=== PATIENT | male | born 1940 | race Caucasian/White ===

== ENCOUNTER → 2016-09-01 | Outpatient (CLI) | payer MEDICARE, BC ==
--- NOTE | 2016-09-01 09:40 | PCVCIMAG ---
EXAM: BILATERAL CAROTID DUPLEX INDICATION: Carotid Occlusive Disease. FINDINGS: Doppler Measurements (centimeters per second): RIGHT: Peak CCA-95, Peak ECA-187, Diastolic ICA-32, Peak ICA-246, ICA/CCA Ratio-2.6. LEFT: Peak CCA-128, Peak ECA-217, Diastolic ICA-46, Peak ICA-248, ICA/CCA Ratio-1.9. RIGHT CAROTID: The carotid bulb has moderate plaque. The proximal internal carotid artery shows 60-70% stenosis. The common carotid artery shows no significant stenosis. The external carotid artery shows 50-60% stenosis. LEFT CAROTID: The carotid bulb has moderate plaque. The proximal internal carotid artery shows 60-70% stenosis. The common carotid artery shows less than 50% stenosis. The external carotid artery shows 60-70% stenosis. Antegrade flow in both vertebral arteries. IMPRESSION: 60-70% stenosis of the right internal carotid artery with moderate plaque. 60-70% stenosis of the left internal carotid artery with moderate plaque. Since February 2015 study there has been mild progression of the right and left carotid stenoses. LOC:[id number]
--- NOTE | 2016-09-01 09:45 | PCVCIMAG ---
EXAM: AORTOILIAC DUPLEX INDICATION: Peripheral arterial disease FINDINGS: AORTA: Suprarenal aorta measures maximum diameter of 2.9 cm. Prior stent graft repair of abdominal aortic aneurysm appears intact without obvious endoleak. Residual aneurysm sac measures maximum diameter of 2.7 x 3.3 cm compared to 3.3 cm on prior study from February 2015. No significant aortic stenosis. RIGHT COMMON ILIAC ARTERY: Maximum diameter is 1.2 cm. No significant stenosis. RIGHT EXTERNAL ILIAC ARTERY: Mild stenosis distally. LEFT COMMON ILIAC ARTERY: Maximum diameter is 1.2 cm. No significant stenosis. LEFT EXTERNAL ILIAC ARTERY: 50-60% stenosis mid vessel. IMPRESSION: Intact stent graft repair of abdominal aortic aneurysm by ultrasound criteria. Residual aneurysm sac is stable compared to prior study. 50-60% stenosis mid left external iliac artery unchanged. LOC:[id number]
--- NOTE | 2016-09-01 13:26 | PCVCIMAG ---
APPROVED REPORT Study performed: 09/01/2016 09:02:33 EXAM: Comprehensive 2D, Doppler, and color-flow Echocardiogram Patient Location: Echo lab Status: routine Other Information Study Quality: Adequate Indications Atrial Fibrillation CAD Syncope Aortic Stenosis, increased pulmonary artery pressure 2D Dimensions LVEF(%): 48.54 (>50%) IVSd: 12.14 (7-11mm)LVOT Diam: 22.21 (18-24mm) LVDd: 46.85 mm PWd: 11.44 (7-11mm) LVDs: 35.40 (25-40mm) Left Atrium: 47.06 (27-40mm) Aortic Root: 31.96 mm LV Single Plane 4CH: 58.27 % LV Single Plane 2CH: 53.67 %Mesa's LVEF: 55.97 % Biplane EF: 56.5 % Volumes Left Atrial Volume (Systole) Single Plane 4CH: 100.68 mLSingle Plane 2CH: 108.89 mL LA ESV Index: 53.00 mL/m2 Aortic Valve AoV Peak Joey.: 3.38 m/s AO Peak Gr.: 45.68 mmHgLVOT Max P.42 mmHg AO Mean Gr.: 25.11 mmHgLVOT Mean P.29 mmHg AO V2 Mean: 2.38 m/sLVOT Max V: 1.05 m/s AO V2 VTI: 88.93 cmLVOT Mean V: 0.72 m/s GALE (VTI): 1.18 [id number] V1 VTI: 27.18 cm GALE Vmax: 1.21 cm2 AI Vmax: 3.59 m/sSV (LVOT): 105.27 mL AI Cherry: 2.21 m/s2 AI PHT: 471.21 ms Mitral Valve MV Peak Gr.: 13.16 mmHg MV Mean Gr.: 3.66 mmHgE/A Ratio: 2.2 MV Decel. Time: 157.83 ms MV E Max Joey.: 1.68 m/s MV A Joey.: 0.77 m/s MV Max Joey.: 1.81 m/s MV Mean Joey.: 0.84 m/s MV VTI: 411.73 mm MVA VTI: 255.68 mm2 MV PHT: 68.51 ms MVA (PHT): 3.21 cm2 IVRT: 58.82 ms Pulmonary Valve PV Peak Joey.: 0.84 m/sPV Peak Gr.: 2.84 mmHg Pulmonary Vein P Vein S: 0.27 m/s P Vein D: 1.03 m/s P Vein S/D Ratio: 0.26 Tricuspid Valve TR Peak Joey.: 3.97 m/s TR Peak Gr.: 63.26 mmHg Left Ventricle The left ventricle is normal size. There is normal LV segmental wall motion. Mild concentric left ventricular hypertrophy. Left ventricular systolic function is normal. The left ventricular ejection fraction is within the normal range. LVEF is 55-60%. Grade II - pseudonormal filling dynamics. Right Ventricle The right ventricle is normal size. The right ventricular systolic function is normal. Atria Left atrium is severely dilated. Right atrium is severely dilated. Aortic Valve The aortic valve is moderately to severely calcified. Mild aortic regurgitation. There is moderate valvular aortic stenosis. Calculated aortic valve area is 1.2 cm2 with maximum pressure gradient of 46 mmHg and mean pressure gradient of 25 mmHg. Mitral Valve The mitral valve is calcified but opens well. Mild mitral regurgitation. No evidence of mitral valve stenosis. Tricuspid Valve The tricuspid valve is normal in structure. Moderate to severe tricuspid regurgitation with PAP of 73 mmHg. Pulmonic Valve The pulmonary valve is normal in structure. Mild pulmonic regurgitation. Great Vessels The aortic root is normal in size. IVC is normal in size and collapses <50% with inspiration. Pericardium There is no pericardial effusion. <Conclusion> The left ventricle is normal size. Mild concentric left ventricular hypertrophy. Left ventricular systolic function is normal. The left ventricular ejection fraction is within the normal range. LVEF is 55-60%. Grade II - pseudonormal filling dynamics. Left atrium is severely dilated. Right atrium is severely dilated. Mild aortic regurgitation. Moderate to severe tricuspid regurgitation with PAP of 73 mmHg. Mild pulmonic regurgitation. There is no pericardial effusion.
== END | disposition home or self-care (01) ==
LOC: PCVCIMAG 08:10
PROVIDERS: ATTEND Internal Medicine Cardiovascular Disease
DX: I65.23 Occlusion and stenosis of bilateral carotid arteries (principal); I08.3 Combined rheumatic disorders of mitral, aortic and tricuspid valves; I45.10 Unspecified right bundle-branch block; I25.10 Atherosclerotic heart disease of native coronary artery without angina pectoris; I10 Essential (primary) hypertension; E78.5 Hyperlipidemia, unspecified; I71.4 Abdominal aortic aneurysm, without rupture; I70.203 Unspecified atherosclerosis of native arteries of extremities, bilateral legs; J44.9 Chronic obstructive pulmonary disease, unspecified; I48.91 Unspecified atrial fibrillation; E78.00 Pure hypercholesterolemia, unspecified; Z95.828 Presence of other vascular implants and grafts; Z95.1 Presence of aortocoronary bypass graft; Z79.82 Long term (current) use of aspirin; Z87.891 Personal history of nicotine dependence
CPT/HCPCS: 80061; 93005; 93306; 93880; 93978; G0463

== ENCOUNTER → 2017-03-19 | Outpatient (CLI) | payer MEDICARE, BC | END | disposition home or self-care (01) | LOC: PCVCCLINIC 12:50 | DX: I65.23 Occlusion and stenosis of bilateral carotid arteries (principal); I08.3 Combined rheumatic disorders of mitral, aortic and tricuspid valves; I48.91 Unspecified atrial fibrillation; I25.10 Atherosclerotic heart disease of native coronary artery without angina pectoris; I11.0 Hypertensive heart disease with heart failure; I50.33 Acute on chronic diastolic (congestive) heart failure; R06.00 Dyspnea, unspecified; I73.9 Peripheral vascular disease, unspecified; R06.02 Shortness of breath; I77.9 Disorder of arteries and arterioles, unspecified; I71.4 Abdominal aortic aneurysm, without rupture; R94.31 Abnormal electrocardiogram [ECG] [EKG]; R09.89 Other specified symptoms and signs involving the circulatory and respiratory systems; Z87.891 Personal history of nicotine dependence; Z79.899 Other long term (current) drug therapy | CPT/HCPCS: 36415; 80061; 93005; 93306; 93880; 93925; G0463 ==

== ENCOUNTER → 2017-07-14 | Outpatient (CLI) | payer MEDICARE, BC ==
[~2017-07-14] MED LIST: REGADENOSON 0.4 MG/5 ML DISP.SYRIN. IV
== END | disposition home or self-care (01) ==
LOC: PCVCIMAG 15:29
DX: I25.10 Atherosclerotic heart disease of native coronary artery without angina pectoris (principal); I48.91 Unspecified atrial fibrillation; R06.00 Dyspnea, unspecified; E78.5 Hyperlipidemia, unspecified; I73.9 Peripheral vascular disease, unspecified
CPT/HCPCS: 78452; 93017; A9500; J2785